=== PATIENT | female | born 1955 | race Caucasian/White ===

== ENCOUNTER 2018-11-07 07:47 | Day surgery (SDC) | payer BC ==
[2018-11-04 14:03] LABS: ALANINE AMINOTRANSFERASE 29 U/L (12-78); ALBUMIN 4.3 g/dL (3.4-5.0); ANION GAP 3 mmol/L (5-15); CALCIUM 9.7 mg/dL (8.5-10.1); CHLORIDE 106 mmol/L (98-107); CREATININE 0.93 mg/dL (0.55-1.02)
[2018-11-04 14:05] LABS: ALKALINE PHOSPHATASE 108 U/L (45-117); BILIRUBIN,TOTAL 0.7 mg/dL (0.2-1.0); TOTAL PROTEIN 8.5 g/dL (6.4-8.2)
[~2018-11-07] VITALS: Ht 165.1 cm; Wt 68.7 kg
[~2018-11-07 07:47] MED LIST: [UNRECOGNIZED DRUG - OTHER] PO
[2018-11-07] MEDS ORDERED: EPHEDRINE 50 MG/ML, 1ML IVPush PRN (08:30)
[2018-11-07] MEDS ORDERED: DIPHENHYDRAMINE 50 MG/ML, 1ML IVPush PRN (08:30)
[2018-11-07] MEDS ORDERED: PROMETHAZINE 25 MG/ML, 1ML IV PRN (08:30)
[2018-11-07] MEDS ORDERED: HYDROcodone/APAP 7.5-325MG/15ML UDC PO PRN (08:30)
[2018-11-07] MEDS ORDERED: OXYcodone 5 MG/5 ML ORAL.SOL UDC PO PRN (08:30)
[2018-11-07] MEDS ORDERED: LABETALOL 5MG/ML, 20ML IV PRN (08:30)
[2018-11-07] MEDS ORDERED: hydrALAzine 20 MG/ML, 1ML IV PRN (08:30)
[2018-11-07] MEDS ORDERED: HYDROmorphone 2 MG/ML, 1ML IVPush PRN (08:30)
[2018-11-07] MEDS ORDERED: FENTANYL PF 100 MCG/2ML IV PRN (08:30)
[2018-11-07] MEDS ORDERED: PROCHLORPERAZINE 5 MG/ML, 2ML IV PRN (08:30)
[2018-11-07] MEDS ORDERED: METOPROLOL 1 MG/ML, 5ML IV PRN (08:30)
[2018-11-07] MEDS ORDERED: MEPERIDINE/PF 25MG/0.5ML IVPush PRN (08:30)
[2018-11-07] MEDS ORDERED: LACTATED RINGERS 1,000 ML IV SCH (08:35)
[2018-11-07 08:49] VITALS: BP 154/76
[2018-11-07] MEDS ORDERED: SCOPOLAMINE PATCH, 1.5MG PATCH.TD72 TD ONE (09:00)
[2018-11-07] MEDS ORDERED: ACETAMINOPHEN 500 MG TABLET PO ONE (09:00)
[2018-11-07] MEDS ORDERED: GABAPENTIN 300 MG CAPSULE PO ONE (09:00)
[2018-11-07] MEDS ORDERED: ONDANSETRON ODT 8 MG PO ONE (09:00)
[2018-11-07] MEDS ORDERED: FENTANYL PF 250 MCG/5ML ONE (09:51)
[2018-11-07] MEDS ORDERED: BUPIVACAINE/PF-EPI 0.5% 1:200K ONE (10:10)
[2018-11-07] MEDS ORDERED: ONDANSETRON 2MG/ML, 2ML ONE (10:35)
[2018-11-07] MEDS ORDERED: DEXAMETHASONE 4 MG/ML, 5ML ONE (10:35)
[2018-11-07] MEDS ORDERED: NALOXONE 0.4 MG/ML, 1ML ONE (10:35)
[2018-11-07] MEDS ORDERED: ROCURONIUM 10 MG/ML,10ML ONE (10:35)
[2018-11-07] MEDS ORDERED: SUCCINYLCHOLINE 20 MG/ML, 10ML ONE (10:35)
[2018-11-07] MEDS ORDERED: NEOSTIGMINE 1 MG/ML, 10ML ONE (10:35)
[2018-11-07] MEDS ORDERED: CEFAZOLIN 1,000 MG ONE (10:35)
[2018-11-07] MEDS ORDERED: GLYCOPYRROLATE 0.2MG/1ML, 5ML ONE (10:35)
[2018-11-07] MEDS ORDERED: PROPOFOL 10 MG/ML, 20ML ONE (10:35)
[2018-11-07] MEDS ORDERED: BUPIVACAINE/PF-EPI 0.5% 1:200K INFIL ONE (10:55)
[2018-11-07] MEDS ORDERED: hydrALAzine 20 MG/ML, 1ML ONE (11:46)
[2018-11-07] MEDS ORDERED: METOCLOPRAMIDE 5 MG/ML, 2ML ONE (12:02)
[2018-11-07] MEDS ORDERED: METOCLOPRAMIDE 5 MG/ML, 2ML IV PRN (12:30)
== END 2018-11-07 14:45 | disposition home or self-care (01) ==
LOC: OUT 07:47 → EDSTATUS 08:00 → OUT 14:45
PROVIDERS: ATTEND Surgery
DX: K81.1 Chronic cholecystitis (principal)
CPT/HCPCS: 36415; 47562; 80053; 88304; 93005; J0330; J0690; J1100; J2310; J2405; J2704; J2710; J2765; J3010; J3490; J7120; Q0162